=== PATIENT | female | born 1985 | race Caucasian/White ===

== ENCOUNTER → 2023-08-29 19:30 | Outpatient (REF) | payer OTHER, SELFPAY | LOC: MRI 19:30 | PROVIDERS: ATTENDING PHYSICIAN Orthopaedic Surgery; FAMILY PHYSICIAN Internal Medicine Geriatric Medicine | DX: S93.491A Sprain of other ligament of right ankle, initial encounter (principal); M76.821 Posterior tibial tendinitis, right leg | CPT/HCPCS: 73721 ==

== ENCOUNTER → 2024-05-28 07:16 | Outpatient (REF) | payer OTHER, SELFPAY | LOC: HWRAD 07:16 | PROVIDERS: ATTENDING PHYSICIAN Internal Medicine Endocrinology, Diabetes & Metabolism; FAMILY PHYSICIAN Internal Medicine Geriatric Medicine | DX: E04.1 Nontoxic single thyroid nodule (principal) | CPT/HCPCS: 76536 ==

== ENCOUNTER → 2024-06-25 13:46 | Outpatient (REF) | payer OTHER, SELFPAY | LOC: RAD 13:46 | PROVIDERS: ATTENDING PHYSICIAN Orthopaedic Surgery; FAMILY PHYSICIAN Internal Medicine Geriatric Medicine | DX: I82.491 Acute embolism and thrombosis of other specified deep vein of right lower extremity (principal) | CPT/HCPCS: 93971 ==